=== PATIENT | male | born 1970 | race Caucasian/White ===

== ENCOUNTER 2019-03-05 09:18 | Emergency (ER) | payer OTHER ==
[2019-03-05 09:25] VITALS: BP 149/92; PULSE 66; TEMP 97.8; BMI 31.3
--- NOTE | 2019-03-05 09:58 | PDOC ---
History of Present Illness - General Chief Complaint: Pain Stated Complaint: RT. HAND PAIN Time Seen by Provider: 03/05/19 09:29 History Source: Patient Exam Limitations: No Limitations - History of Present Illness Initial Comments: 03/05/19 09:52 Patient is here with persistent right hand swelling and pain. States approximate 2 weeks ago had an onset of swelling and tenderness to his second and third MCP of right hand. Was seen by his PMD and has been prescribed antibiotics which she is taking Keflex for. States pain persists without fever. Was encouraged to come to emergency department by his PCP for further evaluation. Patient states pain comes and goes, has also had pain in his left ankle, mother suffers from the same type of swelling. Occurred: reports: other Severity: reports: moderate Pain Location: reports: upper extremity Modifying Factors: improves with: other (right hand Keflex 500 mg 3 times a day 4 days without resolution) Associated Symptoms (Fall): denies symptoms Past History - Travel Traveled outside of the country in the last 30 days: No Close contact w/someone who was outside of country & ill: No - Past Medical History Allergies/Adverse Reactions: Allergies Allergy/AdvReac Type Severity Reaction Status Date / Time Penicillins Allergy Verified 03/05/19 10:10 Home Medications: Ambulatory Orders Acetaminophen 1,000 mg PO Q6H PRN #30 tablet 03/05/19 Amlodipine Besylate [Norvasc -] 10 mg PO DAILY 03/05/19 Cephalexin Monohydrate [Keflex -] 500 mg PO DAILY 03/05/19 Chlorthalidone [Hygroton -] 25 mg PO DAILY 03/05/19 Metoprolol Succinate 50 mg PO DAILY 03/05/19 predniSONE [Deltasone -] 20 mg PO BID #8 tablet 03/05/19 Asthma: Yes COPD: No HTN: Yes - Immunization History Immunization Up to Date: Yes - Suicide/Smoking/Psychosocial Hx Smoking History: Never smoked Have you smoked in the past 12 months: No Hx Alcohol Use: No Drug/Substance Use Hx: No Substance Use Type: Alcohol Review of Systems - Review of Systems Able to Perform ROS?: Yes Is the patient limited Gabonese proficient: Yes Constitutional: Yes: Symptoms Reported, See HPI, Malaise. No: Fever HEENTM: No: Symptoms Reported Musculoskeletal: Yes: Symptoms Reported, See HPI, Joint Pain, Joint Swelling Integumentary: Yes: Symptoms Reported, See HPI, Erythema All Other Systems: Reviewed and Negative *Physical Exam - Vital Signs Last Vital Signs Temp Pulse Resp BP Pulse Ox 97.8 F 66 18 149/92 100 03/05/19 09:22 03/05/19 09:22 03/05/19 09:22 03/05/19 09:22 03/05/19 09:22 - Physical Exam General Appearance: Yes: Nourished, Appropriately Dressed, Apparent Distress, Mild Distress HEENT: positive: JUDE, Normal ENT Inspection, TMs Normal, Pharynx Normal Neck: positive: Supple. negative: Tender Respiratory/Chest: positive: Lungs Clear Gastrointestinal/Abdominal: positive: Soft Extremity: positive: Normal Capillary Refill. negative: Normal Inspection, Normal Range of Motion (limited range of motion secondary to swelling and tenderness to MCPs. 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 Clinically evident of a gout attack which is consistent with history. We'll inform patient probably not a cellulitic problem but in fact and inflammatory process as other family members also suffer from same. Due to patient's renal disease unable to use NSAIDs therefore using steroids for anti-inflammatory purpose. *DC/Admit/Observation/Transfer Diagnosis at time of Disposition: Gout attack Qualifiers: Gout site: hand Gout etiology: unspecified cause Laterality: right Qualified Code(s): M10.9 - Gout, unspecified - Discharge Dispostion Disposition: HOME Condition at time of disposition: Stable - Prescriptions Prescriptions: Acetaminophen 1,000 mg PO Q6H PRN #30 tablet PRN Reason: Pain predniSONE [Deltasone -] 20 mg PO BID #8 tablet - Referrals - Patient Instructions Printed Discharge Instructions: DI for Gout Additional Instructions: Rest, ice to area on and off for 15 minutes 4-6 times a day Avoid heavy lifting or exercise until pain and swelling is resolved or until further directed Keep area highly elevated to reduce swelling Followup with orthopedist in one to 2 days if not improving, if significantly improved may wait one week for followup with orthopedist May use ibuprofen every 6 hours as needed for pain - Post Discharge Activity Forms/Work/School Notes: Back to Work
[2019-03-05 10:39] LABS: HEMATOCRIT 39.5 % (35.4-49); HEMOGLOBIN 13.7 GM/dL (11.7-16.9); LYMPH % 29.7 % (8-40); MCHC 34.8 g/dl (32.0-35.9); MEAN CELL VOLUME 83.2 fl (80-96); MEAN PLT VOLUME 7.9 fl (7.5-11.1); MONO % 9.8 % (3.8-10.2); NEUT % 56.5 % (42.8-82.8); PLATELET COUNT 293 K/MM3 (134-434); RBC 4.75 M/mm3 (4.00-5.60); RDW 13.3 % (11.9-15.9); WHITE BLOOD COUNT 4.2 K/mm3 (4.0-10.0)
[2019-03-05 11:04] LABS: ALBUMIN 2.7 g/dl (3.4-5.0); ALK PHOS 147 U/L (45-117); ANION GAP 6 MMOL/L (8-16); BILIRUBIN,TOTAL 0.3 mg/dL (0.2-1); BLOOD UREA NITROGEN 26 mg/dL (7-18); CALCIUM 9.5 mg/dL (8.5-10.1); CHLORIDE 103 mmol/L (98-107); CO2 31 mmol/L (21-32); CREATININE 1.4 mg/dL (0.55-1.3); GLUCOSE,RANDOM 122 mg/dL (74-106); SGOT/AST 17 U/L (15-37); SGPT/ALT 30 U/L (13-61); SODIUM 140 mmol/L (136-145); TOT PROT 7.7 g/dl (6.4-8.2); URIC ACID 9.3 mg/dL (2.6-7.2)
[2019-03-05] MEDS ORDERED: predniSONE 20 MG TABLET (UD) PO ONE (11:31)
[2019-03-05] MEDS ORDERED: predniSONE 20 MG TABLET (UD) ONE (11:34)
== END 2019-03-05 11:43 | disposition home or self-care (01) ==
LOC: JERFT 09:18
DX: M10.9 Gout, unspecified (principal)
CPT/HCPCS: 36415; 73130-TC-RT-FY; 80053; 84550; 85025; 85651; 99282-25

== ENCOUNTER 2021-04-14 00:13 | Observation (INO) | payer OTHER ==
[2021-04-14 01:19] LABS: EOS % 8.4 % (0-4.5); HEMATOCRIT 38.3 % (35.4-49); HEMOGLOBIN 13.3 GM/dL (11.7-16.9); LYMPH % 36.5 % (8-40); MCH 29.1 pg (25.7-33.7); MCHC 34.6 g/dl (32.0-35.9); MEAN CELL VOLUME 84.1 fl (80-96); MEAN PLT VOLUME 8.6 fl (7.5-11.1); MONO % 10.5 % (3.8-10.2); NEUT % 42.6 % (42.8-82.8); PLATELET COUNT 221 K/MM3 (134-434); RBC 4.56 M/mm3 (4.00-5.60); WHITE BLOOD COUNT 5.1 K/mm3 (4.0-10.0)
[2021-04-14 01:38] LABS: CHLORIDE 104 mmol/L (98-107); SODIUM 141 mmol/L (136-145)
[2021-04-14 01:40] LABS: BLOOD UREA NITROGEN 25.7 mg/dL (7-18); CALCIUM 9.4 mg/dL (8.5-10.1)
[2021-04-14 01:41] LABS: ANION GAP 6 MMOL/L (8-16); CO2 30 mmol/L (21-32); GLUCOSE,RANDOM 99 mg/dL (74-106)
[2021-04-14 01:43] LABS: SGPT/ALT 37 U/L (13-61)
[2021-04-14 01:44] LABS: CREATININE 1.7 mg/dL (0.55-1.3); SGOT/AST 31 U/L (15-37)
[2021-04-14 01:45] LABS: BILIRUBIN,TOTAL 0.3 mg/dL (0.2-1); TOT PROT 7.6 g/dl (6.4-8.2)
[2021-04-14 01:46] LABS: ALK PHOS 188 U/L (45-117)
[2021-04-14 01:51] VITALS: BMI 30.9
[2021-04-14] MEDS ORDERED: amLODIPine BESYLATE 5 MG TABLET (FP) PO ONE (02:56)
[2021-04-14] MEDS ORDERED: amLODIPine BESYLATE 5 MG TABLET (FP) ONE ×2 (02:57→09:33)
[2021-04-14 03:03] LABS: PH,URINE 6.5 (5.0-8.0); URINE APPEARANCE CLEAR; URINE BILIRUBIN NEGATIVE (NEGATIVE); URINE COLOR YELLOW; URINE GLUCOSE (UA) NEGATIVE (NEGATIVE); URINE KETONE NEGATIVE (NEGATIVE); URINE LEUK ESTERASE NEGATIVE (NEGATIVE); URINE NITRITE NEGATIVE (NEGATIVE); URINE PROTEIN NEGATIVE (NEGATIVE); URINE UROBILINOGEN 0.2 mg/dL (0.2-1.0)
[2021-04-14] MEDS ORDERED: LABETALOL HCL 5 MG/1 ML (100MG/20 ML VIAL) IVPUSH ONE (04:13)
[2021-04-14] MEDS ORDERED: LABETALOL HCL 5 MG/1 ML (100MG/20 ML VIAL) ONE (04:25)
[2021-04-14] MEDS ORDERED: hydrALAZINE HCL 25 MG TABLET (FP) PO ONE (04:56)
[2021-04-14] MEDS ORDERED: hydrALAZINE HCL 20 MG/ML VIAL ONE (04:57)
[2021-04-14] MEDS ORDERED: hydrALAZINE HCL 25 MG TABLET (FP) ONE (04:58)
[2021-04-14] MEDS ORDERED: hydrALAZINE HCL 20 MG/ML VIAL IVPUSH ONE (04:59)
[2021-04-14] MEDS ORDERED: LISINOPRIL 20 MG TABLET PO ONE (07:38)
[2021-04-14 09:30] LABS: OPIATES, URI NEGATIVE ng/ml (CUTOFF=300)
[2021-04-14 09:31] LABS: PHENCYCLIDINE,URINE NEGATIVE ng/ml (CUTOFF=25); URINE BARBITURATES NEGATIVE ng/ml (CUTOFF=200)
[2021-04-14 09:32] LABS: METHADONE, UR NEGATIVE ng/ml (CUTOFF=300); URINE BENZODIAZEPINES NEGATIVE ng/ml (CUTOFF=200)
[2021-04-14 10:00] LABS: COCAINE, UR NEGATIVE ng/ml (CUTOFF=300); URINE AMPHETAMINES NEGATIVE ng/ml (CUTOFF=500)
[2021-04-14] MEDS ORDERED: LISINOPRIL 20 MG TABLET PO SCH (10:00)
[2021-04-14] MEDS ORDERED: POTASSIUM CHLORIDE TABS 20 MEQ TABLET.ER (FP) PO ONE (12:29)
[2021-04-14 15:17] VITALS: TEMP 98.4
[2021-04-14 16:35] LABS: BLOOD UREA NITROGEN 20.9 mg/dL (7-18); CALCIUM 9.7 mg/dL (8.5-10.1)
[2021-04-14 16:38] LABS: CREATININE 1.3 mg/dL (0.55-1.3)
[2021-04-14 17:37] VITALS: BP 142/82; PULSE 73
[2021-04-15] MEDS ORDERED: amLODIPine BESYLATE 10 MG TABLET (FP) PO SCH (10:00)
[2021-04-15] MEDS ORDERED: LISINOPRIL 20 MG TABLET PO SCH (10:00)
== END 2021-04-14 18:07 | disposition home or self-care (01) ==
LOC: JER 00:13 → UNDOADMOB 06:18 → INTOOBSV 06:18 → JERBED 06:18 → J4W 09:49
PROVIDERS: ADMIT Student in an Organized Health Care Education/Training Program; ATTEND Student in an Organized Health Care Education/Training Program
PROC: 3E033GC Introduction of Other Therapeutic Substance into Peripheral Vein, Percutaneous Approach (ICD-10-PCS; principal; 2021-04-14)
PROC: 3E033GC Introduction of Other Therapeutic Substance into Peripheral Vein, Percutaneous Approach (ICD-10-PCS; 2021-04-14)
DX: I16.0 Hypertensive urgency (principal); N17.9 Acute kidney failure, unspecified; E87.6 Hypokalemia; J45.909 Unspecified asthma, uncomplicated
CPT/HCPCS: 36415; 70450-TC; 71045-TC-FY; 80048; 80053; 80307; 81003; 82550; 82553; 82570; 82977; 84300; 84484; 85025; 87086; 93005; 93010; 96374; 96375; 99285-25; C9803; G0378; U0003; U0005

== ENCOUNTER 2023-05-16 10:47 | Emergency (ER) | payer OTHER ==
[2023-05-16 10:55] VITALS: TEMP 98.6; BMI 34.9
[2023-05-16] MEDS ORDERED: ACETAMINOPHEN 500 MG TABLET (FP) PO ONE (12:15)
[2023-05-16] MEDS ORDERED: ACETAMINOPHEN 500 MG TABLET (FP) ONE (12:23)
[2023-05-16 13:18] LABS: BASO % 1.9 % (0-2.0); EOS % 4.6 % (0-4.5); HEMATOCRIT 39.6 % (35.4-49); HEMOGLOBIN 13.4 GM/dL (11.7-16.9); LYMPH % 26.1 % (8-40); MCH 28.4 pg (25.7-33.7); MCHC 33.8 g/dl (32.0-35.9); MEAN CELL VOLUME 84.1 fl (80-96); MEAN PLT VOLUME 8.5 fl (7.5-11.1); MONO % 14.1 % (3.8-10.2); NEUT % 53.3 % (42.8-82.8); PLATELET COUNT 291 10^3/uL (134-434); RBC 4.71 M/mm3 (4.00-5.60); RDW 14.3 % (11.9-15.9); WHITE BLOOD COUNT 5.1 K/mm3 (4.0-10.0)
[2023-05-16 13:40] LABS: POTASSIUM 4.2 mmol/L (3.5-5.1)
[2023-05-16 13:41] LABS: CALCIUM 9.8 mg/dL (8.5-10.1)
[2023-05-16 13:42] LABS: ALBUMIN 3.6 g/dl (3.4-5.0); BLOOD UREA NITROGEN 44.4 mg/dL (7-18)
[2023-05-16 13:45] LABS: CREATININE 1.8 mg/dL (0.55-1.3)
[2023-05-16 13:47] LABS: BILIRUBIN,TOTAL 0.4 mg/dL (0.2-1); TOT PROT 7.7 g/dl (6.4-8.2)
[2023-05-16 13:58] LABS: ERYTHROCYTE SEDIMENTATION RATE 82 mm/hr (0-20)
[2023-05-16 14:17] VITALS: BP 122/72; PULSE 77; RESP 19
== END 2023-05-16 14:18 | disposition home or self-care (01) ==
LOC: JER 10:47
DX: R22.31 Localized swelling, mass and lump, right upper limb (principal); M10.9 Gout, unspecified; M79.641 Pain in right hand
CPT/HCPCS: 36415; 73130-TC-RT-FY; 80053; 80061; 83036; 84443; 85025; 85651; 86140; 99284-25

== ENCOUNTER 2023-12-04 10:49 | Day surgery (SDC) | payer OTHER ==
[2023-11-28 13:36] VITALS: BMI 32.1
[2023-12-04 11:11] VITALS: TEMP 98
[2023-12-04 13:01] VITALS: RESP 18
[2023-12-04 13:04] VITALS: BP 135/72; PULSE 74
== END 2023-12-04 12:52 | disposition home or self-care (01) ==
LOC: FASU-ENDO 10:49
PROVIDERS: ATTEND Internal Medicine Gastroenterology
PROC: 0DJD8ZZ Inspection of Lower Intestinal Tract, Via Natural or Artificial Opening Endoscopic (ICD-10-PCS; principal; 2023-12-04 11:58)
DX: Z12.11 Encounter for screening for malignant neoplasm of colon (principal); K64.1 Second degree hemorrhoids